=== PATIENT | male | born 1985 | race Caucasian/White ===

== ENCOUNTER 2022-09-05 18:21 | Inpatient (IN) ==
[2022-09-05 20:00] LABS: ABS Basophils 0.1 10^3/ul (0-0.2); ABS Eosinophils 0.5 10^3/ul (0-0.6); ABS Lymphocytes 1.9 10^3/ul (1.0-4.8); ABS Monocytes 0.4 10^3/ul (0-0.8); ABS Neutrophils 3.1 10^3/ul (1.5-7.7); Eosinophil % 7.9 %; Hematocrit 40 % (42-52); Hemoglobin 13.5 g/dL (14.0-18.0); Lymphocyte % 31.7 %; Mean Corpuscular HGB Conc 34 g/dL (31-36); Mean Corpuscular Hemoglobin 29 pg (27-31); Mean Corpuscular Volume 88 fL (80-94); Mean Platelet Volume 9.2 fL (7.4-10.4); Platelet Count 194 10^3/uL (150-450); Red Blood Count 4.61 10^6 /uL (4.18-5.48); Red Cell Distribution Width 14 % (10-15); White Blood Count 5.8 10^3/uL (3.5-10.8)
[2022-09-05 20:02] LABS: Urine Appearance Clear; Urine Bilirubin Negative (Negative); Urine Blood Negative (Negative); Urine Color Yellow; Urine Glucose Negative (Negative); Urine Ketones Negative (Negative); Urine Nitrite Negative (Negative); Urine Protein Negative (Negative); Urine Specific Gravity 1.009 (1.002-1.030); Urine Urobilinogen Negative (Negative)
[2022-09-05 20:14] LABS: Urine Benzodiazepine Screen None Detected (None Detect); Urine Cannabinoids Screen Presumptive Positive (None Detect); Urine Opiates Screen None Detected (None Detect)
[2022-09-05 21:05] LABS: ALT 25 U/L (7-52); AST 12 U/L (13-39); Acetaminophen < 15 mcg/mL; Albumin 4.5 g/dL (3.2-5.2); Albumin/Globulin Ratio 2.1 (1-3); Alcohol, S < 13 mg/dL (<13); Alkaline Phosphatase 45 U/L (35-149); Anion Gap 9 mmol/L (2-11); Blood Urea Nitrogen 11 mg/dL (6-24); CO2 Carbon Dioxide 29 mmol/L (22-32); Calcium 9.4 mg/dL (8.6-10.3); Chloride 105 mmol/L (101-111); Globulin 2.1 g/dL (2-4); Glucose 79 mg/dL (70-100); Salicylate < 2.50 mg/dL (<30); Sodium 143 mmol/L (135-145); Total Protein 6.6 g/dL (6.4-8.9); eGFR CKD-EPI 115.4 (>60)
[2022-09-05 21:19] LABS: TSH Ultra Thyroid Stim Horm 1.44 mcIU/mL (0.34-5.60)
[2022-09-06] MEDS ORDERED: Al Hydrox/Mg Hydrox/Simet LIQ 30 ML UDC PO PRN (05:24)
[2022-09-06] MEDS: Vitamin THERAPEUTIC TAB PO SCH (10:46)
[2022-09-06] MEDS: Nicotine GUM 2MG FRUIT FLAVOR PO PRN ×3 (13:26→17:55)
[2022-09-07 08:05] LABS: HDL Cholesterol 39.1 mg/dL
[2022-09-07] MEDS: Nicotine GUM 2MG FRUIT FLAVOR PO PRN ×3 (08:21→19:22)
[2022-09-07] MEDS: Vitamin THERAPEUTIC TAB PO SCH (08:21)
[2022-09-08] MEDS: Nicotine GUM 2MG FRUIT FLAVOR PO PRN ×5 (08:29→21:00)
[2022-09-08] MEDS: Vitamin THERAPEUTIC TAB PO SCH (08:29)
[2022-09-09] MEDS: Vitamin THERAPEUTIC TAB PO SCH (09:11)
[2022-09-09] MEDS: Nicotine GUM 2MG FRUIT FLAVOR PO PRN ×3 (09:12→18:49)
[2022-09-10] MEDS: Vitamin THERAPEUTIC TAB PO SCH (09:03)
[2022-09-10] MEDS: Nicotine GUM 2MG FRUIT FLAVOR PO PRN ×2 (15:48→21:02)
[2022-09-11] MEDS: Vitamin THERAPEUTIC TAB PO SCH (11:57)
[2022-09-11] MEDS: Nicotine GUM 2MG FRUIT FLAVOR PO PRN ×3 (12:46→20:23)
[2022-09-12] MEDS: Vitamin THERAPEUTIC TAB PO SCH (08:58)
[2022-09-12] MEDS: Nicotine GUM 2MG FRUIT FLAVOR PO PRN ×3 (08:59→18:52)
[2022-09-13 08:11] VITALS: BP 138/55
[2022-09-13] MEDS: Vitamin THERAPEUTIC TAB PO SCH (09:12)
== END 2022-09-13 12:45 | disposition home or self-care (01) | DRG 751 ==
LOC: ED 18:21 → EDHOLD 09-06 00:20 → BSU 09-06 02:46
PROVIDERS: ADMIT Psychiatry & Neurology Psychiatry; ATTEND Psychiatry & Neurology Psychiatry